=== PATIENT | female | born 1970 | race Two or more races ===

== ENCOUNTER 2024-04-14 01:37 | Emergency (ER) | payer BC, OTHER ==
[~2024-04-14] VITALS: Ht 157.5 cm; Wt 93.8 kg
[2024-04-14 01:39] VITALS: BP 128/62; PULSE 81; TEMP 97.8
[2024-04-14] MEDS ORDERED: PRED20TA2 PO (02:24)
[2024-04-14] MEDS: IPRATROPIUM BROM 0.5 MG/2.5ML INH SOL NEB ONE ×2 (02:30→03:00)
[2024-04-14] MEDS: ALBUTEROL SULF 2.5 MG/0.5ML(0.5%) NEB SOLN NEB ONE ×2 (02:30→03:00)
[2024-04-14] MEDS: DexAMETHasone SOD PHOS 10MG/1ML VIAL INJ IM ONE (02:46)
[2024-04-14 03:20] VITALS: RESP 18
[2024-04-14 04:15] VITALS: O2SAT 95
== END 2024-04-14 04:21 | disposition home or self-care (01) ==
LOC: ER 01:37
DX: J45.909 Unspecified asthma, uncomplicated (principal); E11.9 Type 2 diabetes mellitus without complications
CPT/HCPCS: 71045; 94640; 96372; 99285; J1100; J7644